=== PATIENT | female | born 1960 | race Caucasian/White ===

== ENCOUNTER → 2019-07-20 | Outpatient (CLI) | payer OTHER ==
--- NOTE | 2019-07-20 13:32 | RAD ---
EXAM: Cervical spine MRI without contrast. HISTORY: Pain. TECHNIQUE: Multiplanar, multisequence magnetic resonance imaging of the cervical spine was performed without contrast. COMPARISON: None. FINDINGS: There is noninstrumented fusion at C5-C6. There is minimal anterolisthesis of T1 on T2 and T2 on T3. There is degenerative endplate remodeling and osteophytosis at all nonfused levels, with exception of C2-C3. There is deformation of the cervical spinal cord at multiple levels due to central canal stenosis, described in detail below. No spinal cord signal abnormality is seen. The posterior fossa and skull base are unremarkable. There is mild right greater than left maxillary sinus mucosal thickening with small right maxillary sinus mucous retention cysts. At C2-C3, there is no stenosis. At C3-C4, there is a disc bulge and endplate osteophytosis. There is mild left facet arthropathy. There is bilateral uncovertebral arthropathy. There is mild to moderate left foraminal stenosis. There is deformation of the ventral aspect of the spinal cord and mild to moderate central canal stenosis measuring 8.2 mm in anterior posterior dimension. At C4-C5, there is a left paracentral disc protrusion with slight superior and inferior extrusion superimposed on a disc bulge and endplate osteophytosis. There is bilateral uncovertebral arthropathy. There is severe bilateral foraminal stenosis. There is deformation of the spinal cord and severe central canal stenosis measuring 5.4 mm in anterior posterior dimension. At C5-C6, there is noninstrumented fusion. There is no stenosis. At C6-C7, there is a left foraminal disc protrusion and osteophyte complex with slight inferior extrusion superimposed on a disc bulge and endplate osteophytosis. There is left uncovertebral arthropathy. There is mild right and severe left foraminal stenosis. There is deformation of the spinal cord and moderate to severe central canal stenosis measuring 5.6 cm posterior dimension. At C7-T1, there is a left paracentral disc protrusion and annular tear with slight superior extrusion superimposed on a disc bulge and endplate remodeling. There is moderate left facet arthropathy. There is left uncovertebral arthropathy. There is moderate left foraminal stenosis. There is deformation of the left ventral aspect of the spinal cord and moderate central canal stenosis measuring 6.7 mm in anterior posterior dimension. At T1-T2, there is no stenosis. At T2-T3, there is a posterior central disc protrusion with minimal superior extrusion. There is mild right facet arthropathy. There is mild right foraminal stenosis. At T3-T4, there is severe right facet arthropathy. There is moderate right foraminal stenosis. At T4-T5, there is a posterior central disc protrusion with superior extrusion and facet arthropathy, partially excluded from the [id number]. This is associated with suspected mild central canal stenosis. IMPRESSION: 1. Multilevel degenerative change throughout the cervical and upper thoracic spine, described in detail above. This is associated with mild to moderate left foraminal and moderate central canal stenosis at C3-C4, severe bilateral foraminal and central canal stenosis at C4-C5, mild right and severe left foraminal and moderate to severe central canal stenosis at C6-C7, moderate left foraminal and central canal stenosis at C7-T1, mild right foraminal stenosis at T2-T3, moderate right foraminal stenosis at T3-T4, and suspected mild central canal stenosis at T4-T5. 2. 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 No convincing spinal cord signal change to suggest edema or myelomalacia is seen. 3. Noninstrumented fusion at C5-C6. Electronically signed by: Minnie Linn MD (07/20/2019 1:30 PM) [place] [id number]
== END | disposition home or self-care (01) ==
LOC: MRI 09:35
PROVIDERS: ATTEND Family Medicine
DX: M50.23 Other cervical disc displacement, cervicothoracic region (principal); M48.03 Spinal stenosis, cervicothoracic region; M47.813 Spondylosis without myelopathy or radiculopathy, cervicothoracic region; M25.78 Osteophyte, vertebrae; M12.88 Other specific arthropathies, not elsewhere classified, other specified site; J34.89 Other specified disorders of nose and nasal sinuses; J34.1 Cyst and mucocele of nose and nasal sinus
CPT/HCPCS: 72141